=== PATIENT | female | born 1990 ===

== ENCOUNTER 2021-11-05 15:03 | Outpatient (REF) | payer OTHER, SELFPAY | END 2021-11-05 15:04 | disposition home or self-care (01) | LOC: HO.LNP 15:03 | PROVIDERS: Visit Provider Hospitalist | DX: R30.0 Dysuria (principal); N39.0 Urinary tract infection, site not specified; B96.4 Proteus (mirabilis) (morganii) as the cause of diseases classified elsewhere; Z16.11 Resistance to penicillins; Z16.20 Resistance to unspecified antibiotic | CPT/HCPCS: 87086; 87088; 87186 ==

== ENCOUNTER 2021-12-11 14:17 | Outpatient (REF) | payer OTHER, SELFPAY | END 2021-12-11 14:18 | disposition home or self-care (01) | LOC: HO.LNP 14:17 | PROVIDERS: Visit Provider Hospitalist | DX: R30.0 Dysuria (principal); A49.8 Other bacterial infections of unspecified site | CPT/HCPCS: 87086; 87088; 87186 ==